=== PATIENT | female | born 1980 | race Caucasian/White ===

== ENCOUNTER 2016-08-18 19:10 | Emergency (ER) | payer OTHER ==
[~2016-08-18] VITALS: Ht 149.9 cm; Wt 45.5 kg
[~2016-08-18 19:10] MED LIST: PNV1TABL12 PO
[2016-08-18 19:15] VITALS: Ht 149.9 cm; Wt 45.5 kg
[2016-08-18] MEDS ORDERED: ACETAMINOPHEN 325 MG TAB PO STA (19:20)
[2016-08-18] MEDS ORDERED: SOD CHLORIDE 0.9% 1,000 ML IV STA (19:20)
[2016-08-18 19:53] LABS: ADD SCAN DIFF NO
[2016-08-18 19:55] LABS: BASOPHILS % 0.1 % (0.0-2.0); EOSINOPHILS # 0.1 10^3/ul (0.0-0.5); EOSINOPHILS % 1.1 % (0.0-7.0); HEMATOCRIT 36.1 % (37.0-47.0); HEMOGLOBIN 12.9 g/dl (12.0-16.0); LYMPHOCYTES # 2.4 10^3/ul (0.8-2.9); LYMPHOCYTES % 29.6 % (15.0-51.0); MEAN CORPUSCULAR HEMOGLOBIN 32.7 pg (29.0-33.0); MEAN CORPUSCULAR HGB CONC 35.7 g/dl (32.0-37.0); MEAN CORPUSCULAR VOLUME 91.6 fl (82.0-101.0); MEAN PLATELET VOLUME 10.6 fl (7.4-10.4); MONOCYTE # 0.6 10^3/ul (0.3-0.9); MONOCYTES % 6.8 % (0.0-11.0); PLATELET COUNT 355 10^3/UL (140-415); RED BLOOD COUNT 3.94 10^6/ul (4.20-5.40); RED CELL DISTRIBUTION WIDTH 12.5 % (11.5-14.5); WHITE BLOOD COUNT 8.1 10^3/ul (4.8-10.8)
[2016-08-18 20:11] LABS: ALBUMIN 4.1 g/dl (3.3-4.9)
[2016-08-18 20:12] LABS: POTASSIUM 3.3 mmol/L (3.5-5.1)
[2016-08-18 20:14] LABS: ALBUMIN/GLOBULIN RATIO 1.36; BILIRUBIN,INDIRECT 0.5 mg/dl (0-1.1); BILIRUBIN,TOTAL 0.5 mg/dl (0.2-1.3); CREATININE 0.56 mg/dl (0.44-1.00); TOTAL PROTEIN 7.1 g/dl (6.1-8.1)
[2016-08-18 20:15] LABS: CALCIUM 9.4 mg/dl (8.4-10.2)
--- NOTE | 2016-08-18 20:16 | RADRPT ---
PROCEDURE: OB Ultrasound. CLINICAL INDICATION: Positive test. Pelvic pain and vaginal bleeding. TECHNIQUE: Ultrasound of the pelvis was performed with transabdominal and transvaginal sonography in the axial and sagittal planes. COMPARISON: No prior study is available for comparison. FINDINGS: There is a single irregular intrauterine gestational sac. pole and yolk sac are not present. Mean sac diameter is 3.21 cm. Menstrual age by ultrasound dates is 8 weeks 2 days. This indicates a blighted ovum. There is also a small subchorionic hemorrhage. The right ovary appears normal measuring 2.8 x 2.4 x 1.7 cm. The left ovary appears normal measuring 2.8 x 1.3 x 1.5 cm. Color Doppler and pulsed Doppler sonography demonstrate normal flow to the ovaries. There is no other pelvic mass or free fluid. IMPRESSION: 1. Failed at approximately 8 weeks 2 days menstrual age by ultrasound dates. RPTAT: QQ .Julian Haney MD, MD Date Time Electronically viewed and signed by .Julian Haney MD, on 08/18/2016 20:15 .R/
[2016-08-18] MEDS ORDERED: HYDR-902 PO (20:36)
--- NOTE | 2016-08-18 20:43 | ERD ---
ER Documentation Chief Complaint Date/Time DATE: 08/18/16 TIME: 20:40 Chief Complaint Abdominal pain HPI Patient is a 35-year-old female with no medical problems who presents with pelvic pain. The patient has abdominal pain and says that she is 12 weeks . A code elin was called overhead. The pain started this morning. She went to [facility] a few weeks ago for similar type complaint. She denies any fevers. Her OB doctor is Dr. Vannessa Aguilar. ROS All systems reviewed and are negative except as per history of present illness. Medications Home Meds Active Scripts Hydrocodone/Acetaminophen ([place] 10-325 Tablet) 1 Each Tablet, 1 TAB PO Q6H Y for PAIN, #7 TAB Prov:SERGE STANFORD MD 08/18/16 Reported Medications Pnv Cmb#21/Iron/Folic Acid ( Complete [place]) 1 Tab Tablet, 1 TAB PO DAILY 08/02/13 [None] No Conflict Check 08/13/10 Allergies Allergies: Coded Allergies: No Known Drug Allergy (Verified Allergy, Unknown, 08/02/13) PMhx/Soc Medical and Surgical Hx: pt denies Medical Hx History of Surgery: No Anesthesia Reaction: No Hx Neurological Disorder: No Hx Respiratory Disorders: No Hx Cardiac Disorders: No Hx Psychiatric Problems: No Hx Miscellaneous Medical Probl: No Hx Alcohol Use: No Hx Substance Use: No Hx Tobacco Use: No FmHx Family History: diabetes Physical Exam Physical Exam Const: Mild distress secondary to pain Head: Atraumatic Eyes: Normal Conjunctiva ENT: Normal External Ears, Nose and Mouth. Neck: Full range of motion..~ No meningismus. Resp: Clear to auscultation bilaterally Cardio: Regular rate and rhythm, no murmurs Abd: Lower pelvic tenderness to palpation without rebound or guarding Skin: No petechiae or rashes Back: No midline or flank tenderness Ext: No cyanosis, or edema Neur: Awake and alert Psych: Normal Mood and Affect Result Diagram: 08/18/16193408/18/161934 Results 24 hrs Laboratory Tests Test 08/18/16 19:35 White Blood Count 8.110^3/ul Red Blood Count 3.9410^6/ul Hemoglobin 12.9g/dl Hematocrit 36.1% Mean Corpuscular Volume 91.6fl Mean Corpuscular Hemoglobin 32.7pg Mean Corpuscular Hemoglobin Concent 35.7g/dl Red Cell Distribution Width 12.5% Platelet Count 79704^3/UL Mean Platelet Volume 10.6fl Neutrophils % 62.0% Lymphocytes % 29.6% Monocytes % 6.8% Eosinophils % 1.1% Basophils % 0.1% Nucleated Red Blood Cells % 0.0/100WBC Neutrophils # 5.010^3/ul Lymphocytes # 2.410^3/ul Monocytes # 0.610^3/ul Eosinophils # 0.110^3/ul Basophils # 0.010^3/ul Nucleated Red Blood Cells # 0.010^3/ul Sodium Level 137mmol/L Potassium Level 3.3mmol/L Chloride Level 102mmol/L Carbon Dioxide Level 21mmol/L Anion Gap 17 Blood Urea Nitrogen 13mg/dl Creatinine 0.56mg/dl Glucose Level 102mg/dl Calcium Level 9.4mg/dl Total Bilirubin 0.5mg/dl Direct Bilirubin 0.00mg/dl Indirect Bilirubin 0.5mg/dl Aspartate Amino Transf (AST/SGOT) 18IU/L Alanine Aminotransferase (ALT/SGPT) 25IU/L Alkaline Phosphatase 82IU/L Total Protein 7.1g/dl Albumin 4.1g/dl Globulin 3.00g/dl Albumin/Globulin Ratio 1.36 Lipase 137U/L Current Medications Medications (Trade) Dose Ordered Sig/Kadeem Route PRN Reason Start Time Stop Time Status Last Admin Dose Admin Sodium Chloride (NS) 1,000 ml @ 1,000 mls/hr Q1H STAT IV 08/18/16 19:20 08/18/16 20:19 DC Acetaminophen (Tylenol Tab) 650 mg ONCE STAT PO 08/18/16 19:20 08/18/16 19:21 DC Procedures/MDM Patient is a 35-year-old female with no medical problems who presents with pelvic pain. The patient had a workup including laboratory studies and ultrasound. The patient has mild hypokalemia. Ultrasound shows a failed at 8 weeks. At this point I believe outpatient management is appropriate but the patient will need an outpatient D&C. The patient can follow -up with Dr. Vannessa Aguilar. Departure Diagnosis: Primary Impression: Miscarriage Condition: Fair Patient Instructions: Missed Miscarriage Referrals: VANNESSA AGUILAR MD Additional Instructions: Specialist:Usted tiene trevor condicin mdica que requiere que madie a un especialista dentro de los prximos 1-2 benz.POR FAVOR,CON S[place]NC[place]Z SEGUIMIENTO DE PRIMARIA PHSICIAN refferal. SI USTED NO TIENE UN MDICO GENERAL Y / O USTED NO PUEDE PAGAR jeannie a un mdico,los siguientes ovalle RECURSOS sido suministrado a usted. ES S[place]NC[place]Z RESPONSABILIDAD PARA SER VISTOS POR EL ESPECIALISTA: SERGE STANFORD MD August 18, 2016 20:43
[2016-08-18 21:24] VITALS: BP 109/61; PULSE 64; RESP 18
== END 2016-08-18 21:54 | disposition home or self-care (01) ==
LOC: E/R 19:10
DX: O03.9 Complete or unspecified spontaneous abortion without complication (principal); R10.2 Pelvic and perineal pain
CPT/HCPCS: 36415; 76801; 76817; 80053; 83690; 84702; 85025; 86900; 86901; J7030; Z7502; Z7610

== ENCOUNTER 2016-09-06 01:59 | Emergency (ER) | payer OTHER ==
[~2016-09-06] VITALS: Ht 154.9 cm; Wt 48.0 kg
[~2016-09-06 01:59] MED LIST changes: +HYDR-902 PO; -PNV1TABL12 PO
[2016-09-06 02:05] VITALS: Ht 154.9 cm; Wt 48.0 kg
[2016-09-06] MEDS ORDERED: SOD CHLORIDE 0.9% 1,000 ML IV STA (03:06)
--- NOTE | 2016-09-06 03:53 | ERD ---
ER Documentation Chief Complaint Date/Time DATE: 09/06/16 TIME: 03:51 Chief Complaint Pt reports miscarriage on and having pain and bleeding tonight HPI 35-year-old female presents here in emergency department for complaints of vaginal bleeding, patient was supposed to be 15 weeks , had a miscarriage 3 days ago, was putting out a lot of tissue that time, the bleeding and the pain improved the next day, tonight started to have bleeding heavily again. Patient soaked 3 pads today. Patient prescribed the pain as cramping pain , 8/10 scale, radiates to the back accompanying the vaginal bleeding. Patient denies any fever or chills. Patient denies any dizziness, palpitations or irregular heartbeat. ROS All systems reviewed and are negative except as per history of present illness. Medications Home Meds Active Scripts Hydrocodone/Acetaminophen ([place] 10-325 Tablet) 1 Each Tablet, 1 TAB PO Q6H Y for PAIN, #7 TAB Prov:SERGE STANFORD MD 08/18/16 Allergies Allergies: Coded Allergies: No Known Drug Allergy (Verified Allergy, Unknown, 08/18/16) PMhx/Soc History of Surgery: Yes (L breast biopsy,bilat breast implants) Anesthesia Reaction: No Hx Neurological Disorder: No Hx Respiratory Disorders: No Hx Cardiac Disorders: No Hx Psychiatric Problems: No Hx Miscellaneous Medical Probl: Yes (miscarriage) Hx Alcohol Use: Yes (occasionally) Hx Substance Use: No Hx Tobacco Use: Yes (quit) Smoking Status: Never smoker FmHx Family History: No coronary disease, No diabetes, No other Physical Exam Vitals Vital Signs Date Time Temp Pulse Resp B/P Pulse Ox O2 Delivery O2 Flow Rate FiO2 09/06/16 02:05 99.1 80 20 136/80 97 Physical Exam GENERAL: The patient is well developed and appropriate for usual state of health, in no apparent distress. CHEST: Clear to auscultation bilaterally. There are no rales, wheezes or rhonchi. HEART: Regular rate and rhythm. No murmurs, clicks, rubs or gallops. No S3 or S4. ABDOMEN: Soft, nontender and nondistended. Good bowel sounds. No rebound or guarding. No gross peritonitis. No gross organomegaly or masses. No Segal sign or McBurney point tenderness. BACK: No midline or flank tenderness. EXTREMITIES: Equal pulses bilaterally. There is no peripheral clubbing, cyanosis or edema. No focal swelling or erythema. Full range of motion. Grossly neurovascularly intact. NEURO: Alert and oriented. Cranial nerves 2-12 intact. Motor strength in all 4 extremities with 5/5 strength. Sensation grossly intact. Normal speech and gait. SKIN: There is no apparent rash or petechia. The skin is warm and dry. HEMATOLOGIC AND LYMPHATIC: There is no evidence of excessive bruising or lymphedema. No gross cervical, axillary, or inguinal lymphadenopathy. VAGINAL: Moderate amount of blood in the vaginal vault. Cervical is closed. No adnexal tenderness or cervical motion tenderness noted. Result Diagram: 09/06/16 0346 Results 24 hrs Laboratory Tests Test 09/06/16 03:46 09/06/16 04:56 White Blood Count 9.210^3/ul Red Blood Count 3.5610^6/ul Hemoglobin 11.8g/dl Hematocrit 33.9% Mean Corpuscular Volume 95.2fl Mean Corpuscular Hemoglobin 33.1pg Mean Corpuscular Hemoglobin Concent 34.8g/dl Red Cell Distribution Width 12.3% Platelet Count 68739^3/UL Mean Platelet Volume 10.6fl Neutrophils % 60.4% Lymphocytes % 29.9% Monocytes % 7.8% Eosinophils % 1.1% Basophils % 0.3% Nucleated Red Blood Cells % 0.0/100WBC Neutrophils # 5.610^3/ul Lymphocytes # 2.810^3/ul Monocytes # 0.710^3/ul Eosinophils # 0.110^3/ul Basophils # 0.010^3/ul Nucleated Red Blood Cells # 0.010^3/ul Beta HCG, Quantitative 192.9mIU/ml Bedside Urine pH (LAB) 6.0 Bedside Urine Protein (LAB) 1+ Bedside Urine Glucose (UA) Negative Bedside Urine Ketones (LAB) Negative Bedside Urine Blood 3+ Bedside Urine Nitrite (LAB) Negative Bedside Urine Leukocyte Esterase (L Negative Current Medications Medications (Trade) Dose Ordered Sig/Kadeem Route PRN Reason Start Time Stop Time Status Last Admin Dose Admin Sodium Chloride (NS) 1,000 ml @ 1,000 mls/hr Q1H STAT IV 09/06/16 03:06 09/06/16 04:05 DC 09/06/16 03:49 Morphine Sulfate (morphine) 6 mg ONCE ONCE IV 09/06/16 04:00 6/13/17 04:01 DC 09/06/16 03:55 Ondansetron HCl (Zofran Inj) 4 mg ONCE STAT IV 09/06/16 04:56 09/06/16 04:57 DC 09/06/16 05:02 Normal saline IV bolus was given here in emergency department for rehydration, patient tolerated IV fluids.Patient was given medication for pain here in emergency department, after treatment, patient verbalized feeling much better. Patient's pain is improved. ROCEDURE: ULTRASOUND OBSTETRICAL CLINICAL INDICATION: 35-year-old female with vaginal bleeding and history of recent miscarriage. TECHNIQUE: Multiple sonographic images of the pelvis were obtained. The images were reviewed on a PACS workstation. COMPARISON: Ultrasound OB August 16, 2016 FINDINGS: The uterus is visualized and measures 9.3 x 4.8 x 5.7 cm. The endometrial echo complex is heterogeneous with a normal thickness of approximately 14 mm. There is a single intrauterine gestation. The mean sac diameter is 0.61 cm. This yields an estimated gestational age of 5 weeks and 1 day. The estimated date of delivery is May 08, 2017. There is no evidence for a yolk sac or pole. There is no evidence for free fluid. The right ovary has a normal echotexture and measures 2.5 x 1.3 x 1.8 cm. The left ovary has a normal echotexture and measures 3.0 x 1.3 x 1 point a cm. There is normal flow to the ovaries bilaterally. No adnexal masses are noted. IMPRESSION: There is a cystic focus within the uterine fundus which may represent retained products of conception versus gestational sac with an early intrauterine gestation of approximately 5 weeks 1 day without evidence for a pole or yolk sac. Clinical correlation and follow-up ultrasound is suggested. .Alejandro Rader MD, Date Time Electronically viewed and signed by .Alejandro Rader MD, on 09/06/2016 04:18 .M/ CC: CELIA MCCULLOUGH NP Procedures/MDM Medical Decision Making: Patients vaginal bleeding is most likely consistent of failed , incomplete at this time. Patient does not show any evidence of hypovolemic shock. Patients hemoglobin and hematocrit is stable. There is low suspicion for ectopic . TOM results show unviable showing 5 weeks, smaller comparable to ultrasound done 3 weeks ago. BetaHCG Quantitative is very low consistent with the The patient is Rh+ , does not need RhoGAM this time. There is no signs of symptoms of dehydration. There is low suspicion for sepsis. Patient appears well and is hemodynamically stable. Disposition: Home. Condition: Stable Prescription: [place], doxycycline Instructions: Patient is advised to do bed rest, avoid heavy lifting, and avoid having sex until cleared by OB doctor. Patient is advised to follow up with OB doctor for further evaluation, consider dilatation and curettaged if she is unable to pass products of conception within 1 week, discus this with OB doctor.. Patient is advised that is symptoms are worst, severe bleeding, dizziness, severe abdominal pain, fever, worst signs and symptoms to return to the emergency department immediately. Departure Diagnosis: Primary Impression: Incomplete Condition: Stable Patient Instructions: Miscarriage (Incomplete) Additional Instructions: Patient is advised to do bed rest, avoid heavy lifting, and avoid having sex until cleared by OB doctor. Patient is advised to follow up with OB doctor for further evaluation, consider dilatation and curettaged if she is unable to pass products of conception within 1 week, discus this with OB doctor.. Patient is advised that is symptoms are worst, severe bleeding, dizziness, severe abdominal pain, fever, worst signs and symptoms to return to the emergency department immediately. CELIA MCCULLOUGH NP Sep 06, 2016 03:53
[2016-09-06] MEDS ORDERED: morphine 10 MG INJ IV ONE (04:00)
--- NOTE | 2016-09-06 04:18 | RADRPT ---
PROCEDURE: ULTRASOUND OBSTETRICAL CLINICAL INDICATION: 35-year-old female with vaginal bleeding and history of recent miscarriage. TECHNIQUE: Multiple sonographic images of the pelvis were obtained. The images were reviewed on a PACS workstation. COMPARISON: Ultrasound OB August 16, 2016 FINDINGS: The uterus is visualized and measures 9.3 x 4.8 x 5.7 cm. The endometrial echo complex is heterogene ous with a normal thickness of approximately 14 mm. There is a single intrauterine gestation. The m tony sac diameter is 0.61 cm. This yields an estimated gestational age of 5 weeks and 1 day. The est imated date of delivery is May 08, 2017. There is no evidence for a yolk sac or pole. Th ere is no evidence for free fluid. The right ovary has a normal echotexture and measures 2.5 x 1.3 x 1.8 cm. The left ovary has a normal echotexture and measures 3.0 x 1.3 x 1 point a cm. There is no rmal flow to the ovaries bilaterally. No adnexal masses are noted. IMPRESSION: There is a cystic focus within the uterine fundus which may represent retained products of conceptio n versus gestational sac with an early intrauterine gestation of approximately 5 weeks 1 day without evidence for a pole or yolk sac. Clinical correlation and follow-up ultrasound is suggested. .Alejandro Rader MD, Date Time Electronically viewed and signed by .Alejandro Rader MD, on 09/06/2016 04:19 .M/
[2016-09-06 04:23] LABS: ADD SCAN DIFF NO
[2016-09-06 04:28] LABS: BASOPHILS % 0.3 % (0.0-2.0); EOSINOPHILS # 0.1 10^3/ul (0.0-0.5); EOSINOPHILS % 1.1 % (0.0-7.0); HEMATOCRIT 33.9 % (37.0-47.0); HEMOGLOBIN 11.8 g/dl (12.0-16.0); LYMPHOCYTES # 2.8 10^3/ul (0.8-2.9); LYMPHOCYTES % 29.9 % (15.0-51.0); MEAN CORPUSCULAR HEMOGLOBIN 33.1 pg (29.0-33.0); MEAN CORPUSCULAR HGB CONC 34.8 g/dl (32.0-37.0); MEAN CORPUSCULAR VOLUME 95.2 fl (82.0-101.0); MEAN PLATELET VOLUME 10.6 fl (7.4-10.4); MONOCYTE # 0.7 10^3/ul (0.3-0.9); MONOCYTES % 7.8 % (0.0-11.0); NEUTROPHIL # 5.6 10^3/ul (1.6-7.5); NEUTROPHILS % 60.4 % (39.0-77.0); PLATELET COUNT 295 10^3/UL (140-415); RED BLOOD COUNT 3.56 10^6/ul (4.20-5.40); RED CELL DISTRIBUTION WIDTH 12.3 % (11.5-14.5); WHITE BLOOD COUNT 9.2 10^3/ul (4.8-10.8)
[2016-09-06 04:53] LABS: URINE BLOOD (Dip) POC 3+ (NEGATIVE)
[2016-09-06] MEDS ORDERED: ONDANSETRON 4 MG INJ IV STA (04:56)
[2016-09-06] MEDS ORDERED: IBUP-1542 PO (05:23)
[2016-09-06] MEDS ORDERED: DOXY100T20 PO (05:23)
[2016-09-06] MEDS ORDERED: HYDR-906 PO (05:23)
== END 2016-09-06 05:31 | disposition home or self-care (01) ==
LOC: FTE 01:59
DX: O03.4 Incomplete spontaneous abortion without complication (principal); R10.2 Pelvic and perineal pain; Z87.891 Personal history of nicotine dependence
CPT/HCPCS: 36415; 76801; 76817; 81003; 84702; 85025; 86900; 86901; 96374; 96375; J2270; J2405; J7030; Z7502

== ENCOUNTER 2016-11-17 17:13 | Emergency (ER) | payer OTHER ==
[~2016-11-17] VITALS: Ht 149.9 cm; Wt 48.0 kg
[~2016-11-17 17:13] MED LIST changes: +DOXY100T20 PO; +HYDR-906 PO; +IBUP-1542 PO
[2016-11-17 17:16] VITALS: Ht 149.9 cm; Wt 48.0 kg
--- NOTE | 2016-11-17 18:13 | ERA ---
ER Documentation Chief Complaint Date/Time DATE: 11/17/16 TIME: 18:10 Chief Complaint PELVIC PAIN RADIATING TO LEGS HPI 36-year-old female with a chief complaint of pelvic pain. Patient is 2 months status post spontaneous . Patient has had this pain once before and was diagnosed with a vaginal infection of unknown etiology. Does not remember the medications that she took it to relieve the symptoms. First and last menstrual period was 1 week ago. Describes possible discharge, but characteristics are unknown due to menstrual period. Denies pruritus. Foul odor without specific characteristics. Denies fever, chills, sweating, headache. Patient has no other complaints and describes no other associated manifestations. Nursing notes have been reviewed and are consistent with history given. ROS All systems reviewed and are negative except as per history of present illness. Medications Home Meds Active Scripts Nitrofurantoin Monohyd Macrocr* (Macrobid*) 100 Mg Capsr, 100 MG PO BID for 7 Days, CAP Prov:KARI MCKENNA 11/17/16 Metronidazole* (Flagyl*) 500 Mg Tablet, 500 MG PO TID for 7 Days, TAB Prov:KARI MCKENNA C 11/17/16 Doxycycline Hyclate* (Doxycycline Hyclate*) 100 Mg Tablet.dr, 100 MG PO BID for 10 Days, TAB Prov:CELIA MCCULLOUGH NP 09/06/16 Ibuprofen* (Motrin*) 600 Mg Tab, 600 MG PO Q6H Y for PAIN AND OR ELEVATED TEMP, #30 TAB Prov:CELIA MCCULLOUGH NP 09/06/16 Hydrocodone/Acetaminophen ([place] 5-325 Tablet) 1 Each Tablet, 1 TAB PO Q6H Y for SEVERE PAIN LEVEL 7-10, #20 TAB Prov:CELIA MCCULLOUGH NP 09/06/16 Hydrocodone/Acetaminophen ([place] 10-325 Tablet) 1 Each Tablet, 1 TAB PO Q6H Y for PAIN, #7 TAB Prov:SERGE STANFORD MD 08/18/16 Allergies Allergies: Coded Allergies: No Known Drug Allergy (Verified Allergy, Unknown, 08/18/16) PMhx/Soc History of Surgery: Yes (L breast biopsy,bilat breast implants) Anesthesia Reaction: No Hx Neurological Disorder: No Hx Respiratory Disorders: No Hx Cardiac Disorders: No Hx Psychiatric Problems: No Hx Miscellaneous Medical Probl: Yes (miscarriage) Hx Alcohol Use: Yes (occasionally) Hx Substance Use: No Hx Tobacco Use: Yes (quit) Physical Exam Vitals Vital Signs Date Time Temp Pulse Resp B/P Pulse Ox O2 Delivery O2 Flow Rate FiO2 11/17/16 21:27 97.7 58 18 114/68 100 Room Air 11/17/16 17:16 98.6 92 18 105/64 98 Physical Exam Const: Healthy-appearing. No acute distress. Abd: Mild suprapubic tenderness. Soft, non tender, non distended. No guarding, masses. Normal bowel sounds. No McBurney's point tenderness. Back: No midline, flank or CVA tenderness Head: Normocephalic, Atraumatic. Eyes: Non-injected; No scleral erythema, discharge or foreign body. Ears: Normal External Ears, EACs clear, TM normal bilaterally without erythema. Nose: Normal external nose; no discharge, septal deviation, or sinus tenderness. Neck: No cervical lymphadenopathy, masses or goiter palpated. Trachea midline. Supple ~ No meningismus. Pulm: No dyspnea, stridor, tripoding or drooling. Good air movement. Clear to auscultation bilaterally. Cardio: Regular rate and rhythm; No murmurs, gallops or rubs auscultated. No JVD grossly observed. Radial and posterior tibial pulses 2+ bilaterally. Capillary refill less than 2 seconds. MS: Normal motor strength, normal tone. Skin: No petechiae or rashes. No ulcer, induration, jaundice. Good turgor. . Ext: No cyanosis, edema or palpable cord. Normal movement of all extremities grossly observed. Neur: Awake, alert and oriented x3. Neurovascularly intact bilaterally. Psych: Normal Mood and Affect. Result Diagram: 11/17/16200411/17/162004 Results 24 hrs Laboratory Tests Test 11/17/16 19:14 11/17/16 20:05 Bedside Urine pH (LAB) 5.5 Bedside Urine Protein (LAB) Trace Bedside Urine Glucose (UA) Negative Bedside Urine Ketones (LAB) Trace Bedside Urine Blood 1+ Bedside Urine Nitrite (LAB) Negative Bedside Urine Leukocyte Esterase (L 3+ White Blood Count 13.910^3/ul Red Blood Count 4.0910^6/ul Hemoglobin 13.0g/dl Hematocrit 37.6% Mean Corpuscular Volume 91.9fl Mean Corpuscular Hemoglobin 31.8pg Mean Corpuscular Hemoglobin Concent 34.6g/dl Red Cell Distribution Width 11.6% Platelet Count 73287^3/UL Mean Platelet Volume 10.4fl Neutrophils % 78.8% Lymphocytes % 13.7% Monocytes % 6.5% Eosinophils % 0.4% Basophils % 0.2% Nucleated Red Blood Cells % 0.0/100WBC Neutrophils # (Manual) 10.910^3/ul Lymphocytes # 1.910^3/ul Monocytes # 0.910^3/ul Eosinophils # 0.110^3/ul Basophils # 0.010^3/ul Nucleated Red Blood Cells # 0.010^3/ul Prothrombin Time 13.7Sec Prothrombin Time Ratio 1.1 INR International Normalized Ratio 1.05 Activated Partial Thromboplast Time 30.1Sec Sodium Level 141mmol/L Potassium Level 3.8mmol/L Chloride Level 103mmol/L Carbon Dioxide Level 23mmol/L Anion Gap 19 Blood Urea Nitrogen 16mg/dl Creatinine 0.70mg/dl Glucose Level 76mg/dl Calcium Level 9.6mg/dl Total Bilirubin 0.5mg/dl Direct Bilirubin 0.00mg/dl Indirect Bilirubin 0.5mg/dl Aspartate Amino Transf (AST/SGOT) 24IU/L Alanine Aminotransferase (ALT/SGPT) 42IU/L Alkaline Phosphatase 81IU/L Total Protein 7.5g/dl Albumin 4.4g/dl Globulin 3.10g/dl Albumin/Globulin Ratio 1.41 Lipase 73U/L Beta HCG, Quantitative < 2.4mIU/ml Current Medications Medications (Trade) Dose Ordered Sig/Kadeem Route PRN Reason Start Time Stop Time Status Last Admin Dose Admin Acetaminophen/ Hydrocodone Bitart ([place] (5/325)) 1 tab ONCE ONCE PO 11/17/16 18:30 11/17/16 18:31 DC 11/17/16 18:42 Morphine Sulfate (morphine) 3 mg ONCE ONCE IM 11/17/16 20:00 11/17/16 20:01 DC 11/17/16 19:53 Morphine Sulfate (morphine) 1 mg ONCE ONCE IM 11/17/16 21:00 11/17/16 21:01 DC 11/17/16 21:00 Procedures/MDM 36-year-old female presenting with a chief complaints of pelvic pain. [place] 5/ 325 mg p.o. was given with adequate relief of pain. Patient has had this once before and was diagnosed with a vaginal infection. Does not remember the etiology or the medications to relieve previous vaginal infection. Ultrasound was ordered to rule out ovarian torsion. Ultrasound was read by the radiologist given the following impression: 0.5 cm bilobed cyst in the junctional zone at the posterior uterine fundus is unchanged from September 06, 2016. In this clinical setting of recent miscarriage, recommend correlation with serum beta HCG. If beta HCG is negative, the cyst is likely benign and may be related to adenomyosis. Other etiologies may be considered if the beta HCG is positive. Pelvic ultrasound is otherwise normal. Cause for pelvic pain is not evident. At this time of little suspicion for ovarian torsion, retained products of conception, pyelonephritis, PID, acute abdomen, or other serious bacterial infections. Most likely diagnosis is adenomyosis as outlined in the ultrasound results. Patient's case will be handed off to Kari Mckenna PA-C. Departure Diagnosis: Primary Impression: Acute pain in female pelvis Condition: Stable Additional Instructions: Follow up with your PCP within the next 1-3 days for a more thorough evaluation and a possible referral to a specialist. Return the the emergency department immediately if symptoms worsen or change. If you have any questions regarding medications, ask your pharmacist or us before you leave. If any adverse reactions occur while taking your medications, discontinue the treatment and return to the emergency department immediately. Take your medications as directed, and complete the entire course of treatment. Comments Patient handed off to MOLLY Tran MICHAEL PA-C Nov 17, 2016 18:11
[2016-11-17] MEDS ORDERED: HYDROCODONE/APAP (5/325) TAB PO ONE (18:30)
[2016-11-17 19:09] LABS: URINE BLOOD (Dip) POC 1+ (NEGATIVE)
[2016-11-17] MEDS ORDERED: METR500T PO ×2 (19:32→21:19)
[2016-11-17] MEDS ORDERED: NITR-58 PO ×2 (19:32→21:19)
--- NOTE | 2016-11-17 19:36 | RADRPT ---
PROCEDURE: ULTRASOUND EVALUATION OF THE FEMALE PELVIS: CLINICAL INDICATION: 36 years of age, female, pelvic pain . COMPARISON: OB ultrasound September 06, 2016 TECHNIQUE: Real-time sonographic images of the pelvis were obtained transabdominally and transvagina lly utilizing doyle scale, color, and Doppler imaging. FINDINGS: LMP: November 11, 2016 Uterus: Appearance: 0.4 x 0.5 x 0.5 cm bilobed cyst in junctional zone at the posterior fundus without hyper emia is unchanged from the prior exam. Myometrium is otherwise normal. Cervix is closed. Position: Anteverted Size: 8.2 x 3.5 x 5.1 cm. (Volume 77.3 mL) Endometrial stripe: 0.3 cm Right ovary and adnexa: Size: 1.5 x 1.6 x 2.4 cm. (Volume 2.8 mL) Appearance: Normal morphology. No masses. Arterial flow present. Left ovary and adnexa: Size: 2.4 x 1.4 x 1.8 cm. (Volume 3.2 mL) Appearance: Normal morphology. No masses. Venous flow present. Free fluid: None IMPRESSION: 0.5 cm bilobed cyst in the junctional zone at the posterior uterine fundus is unchanged from August. In this clinical setting of recent miscarriage, recommend correlation with serum beta HCG. If beta HCG is negative, the cyst is likely benign and may be related to adenomyosis. Other etiolog ies may be considered if the beta HCG is positive. Pelvic ultrasound is otherwise normal. Cause for pelvic pain is not evident. RPTAT: HCTS Physician Jasen Date Time Electronically viewed and signed by Physician Jasen on 11/17/2016 19:36 CS/
[2016-11-17] MEDS ORDERED: morphine 10 MG INJ IM ONE ×2 (20:00→21:00)
[2016-11-17 20:27] LABS: BASOPHILS % 0.2 % (0.0-2.0); EOSINOPHILS # 0.1 10^3/ul (0.0-0.5); EOSINOPHILS % 0.4 % (0.0-7.0); HEMATOCRIT 37.6 % (37.0-47.0); LYMPHOCYTES # 1.9 10^3/ul (0.8-2.9); LYMPHOCYTES % 13.7 % (15.0-51.0); MEAN CORPUSCULAR HEMOGLOBIN 31.8 pg (29.0-33.0); MEAN CORPUSCULAR HGB CONC 34.6 g/dl (32.0-37.0); MEAN CORPUSCULAR VOLUME 91.9 fl (82.0-101.0); MEAN PLATELET VOLUME 10.4 fl (7.4-10.4); MONOCYTE # 0.9 10^3/ul (0.3-0.9); MONOCYTES % 6.5 % (0.0-11.0); NEUTROPHILS % 78.8 % (39.0-77.0); PLATELET COUNT 293 10^3/UL (140-415); RED BLOOD COUNT 4.09 10^6/ul (4.20-5.40); RED CELL DISTRIBUTION WIDTH 11.6 % (11.5-14.5); WHITE BLOOD COUNT 13.9 10^3/ul (4.8-10.8)
[2016-11-17 20:41] LABS: INR 1.05; PROTIME 13.7 Sec (12.2-14.2); PT RATIO 1.1
[2016-11-17 20:42] LABS: PARTIAL THROMBOPLASTIN TIME 30.1 Sec (25.0-35.0)
[2016-11-17 20:45] LABS: ALBUMIN 4.4 g/dl (3.3-4.9); ALBUMIN/GLOBULIN RATIO 1.41; BILIRUBIN,INDIRECT 0.5 mg/dl (0-1.1); BILIRUBIN,TOTAL 0.5 mg/dl (0.2-1.3); CALCIUM 9.6 mg/dl (8.4-10.2); CREATININE 0.7 mg/dl (0.44-1.00); POTASSIUM 3.8 mmol/L (3.5-5.1); TOTAL PROTEIN 7.5 g/dl (6.1-8.1)
[2016-11-17 21:27] VITALS: BP 114/68; PULSE 58; RESP 18; TEMP 97.7
== END 2016-11-18 08:25 | disposition home or self-care (01) ==
LOC: FTE 17:13 → E/R 11-18 08:25
DX: R10.2 Pelvic and perineal pain (principal); Z87.891 Personal history of nicotine dependence
CPT/HCPCS: 36415; 76830; 76856; 80053; 81003; 83690; 84702; 85025; 85610; 85730; 96372; J2270; Z7502; Z7610

== ENCOUNTER 2017-06-28 14:42 | Emergency (ER) | END 2017-06-28 17:30 | disposition home or self-care (01) ==

== ENCOUNTER 2017-08-31 23:15 | Outpatient (CLI) | END 2017-09-01 03:40 | disposition home or self-care (01) ==

== ENCOUNTER 2017-11-08 22:37 | Outpatient (CLI) | END 2017-11-09 02:08 | disposition home or self-care (01) ==

== ENCOUNTER 2017-11-18 03:30 | Inpatient (IN) | END 2017-11-20 18:50 | disposition home or self-care (01) | DRG 775 ==

== ENCOUNTER 2018-03-28 22:35 | Emergency (ER) | payer BC, OTHER ==
[~2018-03-28] VITALS: Ht 152.4 cm; Wt 53.0 kg
[~2018-03-28 22:35] MED LIST changes: -DOXY100T20 PO; -HYDR-902 PO; -HYDR-906 PO; -IBUP-1542 PO; +PNV1TABL12 PO
[2018-03-28 22:40] VITALS: Ht 152.4 cm; Wt 53.0 kg
[2018-03-29] MEDS ORDERED: ACETAMINOPHEN 325 MG TAB PO STA (00:28)
[2018-03-29] MEDS ORDERED: DOXY1TAB3 PO (02:14)
--- NOTE | 2018-03-29 02:35 | ERD ---
ER Documentation Chief Complaint Chief Complaint abd pain, n/v x 2 days. doesnt know if shes HPI 37-year-old female presents for abdominal pain, nausea, vomiting times 2 days. She notes lower pelvic pain that is noted to be mild. States that there is some radiation to her back. She describes the pain as crampy. She denies any vaginal bleeding. No prior similar symptoms. She presents to the clinic today and tested positive for on urine test. ROS All systems reviewed and are negative except as per history of present illness. Medications Home Meds Active Scripts Doxylamine/Pyridoxine Hcl (DICLEGIS DR 10-10 MG TABLET) 1 Each Tablet.dr, 1 TAB PO Q6H PRN for NAUSEA, #30 TAB Prov:ILANSERGIO DO 03/29/18 Reported Medications Pnv Cmb#21/Iron/Folic Acid ( Complete Caplet) 1 Each Tablet, 1 EACH PO DAILY, TAB 11/17/17 Allergies Allergies: Coded Allergies: No Known Drug Allergy (Verified Allergy, Unknown, 03/28/18) PMhx/Soc Anesthesia Reaction: No Hx Neurological Disorder: No Hx Respiratory Disorders: No Hx Cardiac Disorders: No Hx Psychiatric Problems: No Hx Miscellaneous Medical Probl: Yes (miscarriage) Hx Alcohol Use: No Hx Substance Use: No Hx Tobacco Use: No Smoking Status: Never smoker Physical Exam Vitals Vital Signs Date Temp Pulse Resp B/P (MAP) Pulse Ox O2 O2 Flow FiO2 Time Delivery Rate 03/28/18 98.6 82 20 124/65 98 22:40 (84) Physical Exam Const: No acute distress Resp: Clear to auscultation bilaterally Cardio: Regular rate and rhythm, no murmurs Abd: Soft, non distended. Normal bowel sounds, mild lower tenderness to palpation, no McBurney's point tenderness, no Segal sign, no rebound or guarding noted. Skin: No petechiae or rashes Back: No midline or flank tenderness Ext: No cyanosis, or edema Neur: Awake and alert Psych: Normal Mood and Affect Result Diagram: 03/29/18 0040 03/29/18 0040 Results 24 hrs Laboratory Tests Test 03/29/18 00:32 03/29/18 00:40 Urine Color YELLOW Urine Clarity CLEAR Urine pH 6.0 Urine Specific [place] 1.023 Urine Ketones TRACE mg/dL Urine Nitrite NEGATIVE mg/dL Urine Bilirubin NEGATIVE mg/dL Urine Urobilinogen NEGATIVE mg/dL Urine Leukocyte Esterase NEGATIVE Sunny/ul Urine Microscopic RBC 0 /HPF Urine Microscopic WBC 1 /HPF Urine Squamous Epithelial Cells FEW /HPF Urine Hemoglobin 1+ mg/dL Urine Glucose NEGATIVE mg/dL Urine Total Protein NEGATIVE mg/dl White Blood Count 9.9 10^3/ul Red Blood Count 3.68 10^6/ul Hemoglobin 12.1 g/dl Hematocrit 34.4 % Mean Corpuscular Volume 93.5 fl Mean Corpuscular Hemoglobin 32.9 pg Mean Corpuscular Hemoglobin Concent 35.2 g/dl Red Cell Distribution Width 12.8 % Platelet Count 291 10^3/UL Mean Platelet Volume 10.5 fl Immature Granulocytes % 0.400 % Neutrophils % 60.9 % Lymphocytes % 30.5 % Monocytes % 7.4 % Eosinophils % 0.7 % Basophils % 0.1 % Nucleated Red Blood Cells % 0.0 /100WBC Immature Granulocytes # 0.040 10^3/ul Neutrophils # 6.0 10^3/ul Lymphocytes # 3.0 10^3/ul Monocytes # 0.7 10^3/ul Eosinophils # 0.1 10^3/ul Basophils # 0.0 10^3/ul Nucleated Red Blood Cells # 0.0 10^3/ul Sodium Level 139 mmol/L Potassium Level 4.1 mmol/L Chloride Level 102 mmol/L Carbon Dioxide Level 23 mmol/L Anion Gap 14 Blood Urea Nitrogen 19 mg/dl Creatinine 0.48 mg/dl Est Glomerular Filtrat Rate mL/min > 60 mL/min Glucose Level 122 mg/dl Calcium Level 10.0 mg/dl Total Bilirubin 0.1 mg/dl Direct Bilirubin 0.00 mg/dl Indirect Bilirubin 0.1 mg/dl Aspartate Amino Transf (AST/SGOT) 22 IU/L Alanine Aminotransferase (ALT/SGPT) 27 IU/L Alkaline Phosphatase 79 IU/L Total Protein 6.5 g/dl Albumin 4.2 g/dl Globulin 2.30 g/dl Albumin/Globulin Ratio 1.82 Beta HCG, Quantitative 157800.0 mIU/ml Current Medications Medications Dose Sig/Kadeem Start Time Status Last (Trade) Ordered Route PRN Stop Time Admin Dose Reason Admin 650 mg ONCE STAT 03/29/18 DC 03/29/18 Acetaminophen PO 00:28 03/29/18 00:42 (Tylenol 00:30 Tab) Procedures/MDM Medical Decision Making: Differential diagnosis includes but not limited to acute gastroenteritis, acute gastritis, appendicitis, cholecystitis, pancreatitis, . Patient appeared well on physical exam. Nontoxic appearing. There is mild tenderness to palpation over the pelvic area. There is low suspicion for an acute abdomen at this point. Labs: CBC showed no anemia, no elevated WBC to suggest infection CMP showed no electrolyte abnormalities, there was normal kidney and liver fu nction UA was negative for infection Beta-hCG level was 241,230 Imaging: Pelvic ultrasound showed Single live intrauterine with an estimated gestational age of 7 weeks 6 days. This yields an estimated due date of 11/09/2018, compared to an estimated due date of 09/25/2018 by LMP. Prescription(s): Patient given prescription for Diclegis. Advised follow-up with [facility]. Advised to take [id number] vitamins. Patient advised to follow up with PCP in 1-2 days. Patient advised to return to ED for new or worsening symptoms. Patient stable on discharge from the ED. Disclaimer: Inadvertent spelling and grammatical errors are likely due to EHR/dictation software use and do not reflect on the overall quality of patient care. Also, please note that the electronic time recorded on this note does not necessarily reflect the actual time of the patient encounter. Departure Diagnosis: Primary Impression: Weeks of gestation: less than 8 weeks Qualified Codes: Z3A.01 - Less than 8 weeks gestation of Condition: Fair Patient Instructions: Abdominal Pain, Early Referrals: [facility] YOU HAVE RECEIVED A MEDICAL SCREENING EXAM AND THE RESULTS INDICATE THAT YOU DO NOT HAVE A CONDITION THAT REQUIRES URGENT TREATMENT IN THE EMERGENCY DEPARTMENT. FURTHER EVALUATION AND TREATMENT OF YOUR CONDITION CAN WAIT UNTIL YOU ARE SEEN IN YOUR DOCTORS OFFICE WITHIN THE NEXT 1-2 DAYS. IT IS YOUR RESPONSIBILITY TO MAKE AN APPOINTMENT FOR FOLOW-UP CARE. IF YOU HAVE A PRIMARY DOCTOR --you should call your primary doctor and schedule an appointment IF YOU DO NOT HAVE A PRIMARY DOCTOR YOU CAN CALL OUR PHYSICIAN REFERRAL HOTLINE AT IF YOU CAN NOT AFFORD TO SEE A PHYSICIAN YOU CAN CHOSE FROM THE FOLLOWING [facility] [address] [facility]. [facility] [address] [facility] [address] [facility]. [facility] [address] [facility] [address] [facility]. [facility]. [address] Additional Instructions: Call your primary care doctor TOMORROW for an appointment during the next 1-2 days.See the doctor sooner or return here if your condition worsens before your appointment time. Follow up with Qualifications Examiner SERGIO TALAVERA DO Mar 29, 2018 02:35
== END 2018-03-29 02:56 | disposition home or self-care (01) ==
LOC: FTE 22:35
DX: O26.891 Other specified pregnancy related conditions, first trimester (principal); R10.2 Pelvic and perineal pain; Z3A.01 Less than 8 weeks gestation of pregnancy
CPT/HCPCS: 36415; 76801; 80053; 81001; 84702; 85025; 99284; Z7610

== ENCOUNTER 2018-04-06 10:23 | Emergency (ER) | payer BC ==
[~2018-04-06] VITALS: Ht 162.6 cm; Wt 60.0 kg
[~2018-04-06 10:23] MED LIST changes: +DOXY1TAB3 PO
[2018-04-06 10:25] VITALS: Ht 162.6 cm; Wt 60.0 kg
[2018-04-06] MEDS ORDERED: SOD CHLORIDE 0.9% 1,000 ML IV STA (10:47)
[2018-04-06] MEDS ORDERED: METOCLOPRAMIDE 10 MG INJ IV ONE (11:00)
[2018-04-06] MEDS ORDERED: DIPHENHYDRAMINE 50 MG INJ IV ONE (11:00)
[2018-04-06] MEDS ORDERED: ACET500C5 PO (15:01)
[2018-04-06] MEDS ORDERED: CEPH-443 PO (15:01)
[2018-04-06] MEDS ORDERED: METO10TA92 PO (15:01)
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
[2018-04-06 15:31] VITALS: BP 101/55; PULSE 73; RESP 18
--- NOTE | 2018-04-06 15:56 | NUR ---
Pt completed the Discharge Consent By Patient Without Permanent Address form and was provided with taxi voucher to friend's home. Please see nursing notes for Address.
== END 2018-04-06 15:35 | disposition home or self-care (01) ==
LOC: FTE 10:23
DX: O21.9 Vomiting of pregnancy, unspecified (principal); R10.2 Pelvic and perineal pain; Z3A.12 12 weeks gestation of pregnancy
CPT/HCPCS: 76801; 80053; 81001; 83690; 84702; 85025; 86900; 86901; J1200; J2765; J7030; 36415; 81003; 96361; 96374; 96375

== ENCOUNTER 2018-09-26 18:17 | Outpatient (CLI) | payer BC ==
[~2018-09-26 18:17] MED LIST changes: +ACET500C5 PO; +CEPH-443 PO; +METO10TA92 PO
--- NOTE | 2018-10-18 08:21 | QN ---
Documentation Comment patient was not evaluated by me and left against medical advice SERGIO LEÓN MD Oct 18, 2018 08:21
== END 2018-09-26 18:30 | disposition left against medical advice (07) ==
LOC: OBT 18:17 → L-D 18:17 → OBT 18:30
PROVIDERS: ATTEND Obstetrics & Gynecology
DX: Z53.21 Procedure and treatment not carried out due to patient leaving prior to being seen by health care provider (principal)
CPT/HCPCS: G0463

== ENCOUNTER 2018-09-26 20:51 | Inpatient (IN) | payer BC ==
[~2018-09-26] VITALS: Ht 149.9 cm; Wt 58.1 kg
[2018-09-26] MEDS ORDERED: BUTORPHANOL 2 MG INJ IV PRN ×2 (22:30)
[2018-09-26] MEDS ORDERED: MISOPROSTOL 200 MCG TAB PR PRN (22:30)
[2018-09-26] MEDS ORDERED: CARBOPROST 250 MCG INJ IM PRN (22:30)
[2018-09-26] MEDS ORDERED: OXYTOCIN 30 UNITS/LR 500 ML IV PRN (22:30)
[2018-09-26] MEDS ORDERED: METHYLERGONOVINE 0.2 MG INJ IM PRN (22:30)
[2018-09-26] MEDS ORDERED: AMPICILLIN 2 GM/NS (PMX) 100 ML IVPB ONE (22:30)
[2018-09-26] MEDS ORDERED: IBUPROFEN 600 MG TAB PO PRN (22:30)
[2018-09-26] MEDS ORDERED: LIDOCAINE 1% (MPF) 30 ML INJ INJ PRN (22:30)
[2018-09-26 23:00] VITALS: Ht 149.9 cm; Wt 58.1 kg
[2018-09-27] MEDS ORDERED: LACTATED RINGER'S 1,000 ML IV PRN (00:20)
[2018-09-27] MEDS: LACTATED RINGER'S 1,000 ML IV SCH ×4 (00:20→22:36)
[2018-09-27] MEDS: AMPICILLIN 1 GM/NS (PMX) 50 ML IVPB SCH ×6 (04:14→21:00)
[2018-09-27] MEDS ORDERED: DEXTROSE 50% 50 ML SYRINGE IV PRN ×2 (14:00)
[2018-09-27] MEDS ORDERED: OXYTOCIN 30 UNITS/LR 500 ML IV PRN (14:00)
[2018-09-27] MEDS ORDERED: GLUCAGON 1 MG INJ IM PRN (14:00)
[2018-09-27] MEDS ORDERED: GLUCOSE GEL 15 GRAM TUBE BUCCAL PRN (14:00)
[2018-09-27] MEDS ORDERED: CARBOPROST 250 MCG INJ IM PRN (14:00)
[2018-09-27] MEDS ORDERED: OXYTOCIN 30 UNITS/LR 500 ML IV SCH ×2 (14:00)
[2018-09-27] MEDS ORDERED: GLUCOSE GEL 15 GRAM TUBE PO PRN ×2 (14:00)
[2018-09-27] MEDS ORDERED: METHYLERGONOVINE 0.2 MG INJ IM PRN (14:00)
[2018-09-27] MEDS ORDERED: MISOPROSTOL 200 MCG TAB PR PRN (14:00)
[2018-09-27] MEDS ORDERED: LIDOCAINE 1% (MPF) 30 ML INJ INJ PRN (14:00)
[2018-09-27] MEDS: INSULIN ASPART [NOVOLOG] 3 ML PEN SC SCH (17:58)
[2018-09-27] MEDS ORDERED: NPH, HUMAN INSULIN ISOPHANE 3ML VIAL SC SCH (20:00)
[2018-09-28] MEDS: AMPICILLIN 1 GM/NS (PMX) 50 ML IVPB SCH ×3 (00:10→10:36)
[2018-09-28] MEDS: LACTATED RINGER'S 1,000 ML IV SCH (06:26)
[2018-09-28] MEDS ORDERED: NPH, HUMAN INSULIN ISOPHANE 3ML VIAL SC SCH (08:00)
[2018-09-28] MEDS: INSULIN ASPART [NOVOLOG] 3 ML PEN SC SCH (09:11)
--- NOTE | 2018-09-28 11:59 | HP ---
Date/Time of Note Date/Time of Note DATE: 09/28/18 TIME: 11:58 OB - History Hx of Present : 4 Para: 3 Care: Good Care Ultrasounds: Normal mid trimester US Obstetrical Complications: Other (Pregestational DM) Past Family/Social History * Past Medical, Surgical, Family and Obstetric Histories reviewed from chart. OB Admission Exam Physical Exam Abdomen: WNL Extremities: Normal Cervical Dilatation: 3cm Effacement: 50% Station: -1 Membranes: Intact Heart Rate: 140's Decelerations: No Decelerations Varibility: Moderate Contractions on Admission: >10 Minutes Apart Last 72 hourBlood Glucose Bedside Glucose - 72 Hours Test 09/27/18 08:10 09/27/18 11:16 09/27/18 15:37 09/27/18 17:59 Bedside 121 129 154 92 Glucose mg/dL (70-220) mg/dL (70-220) mg/dL (70-220) mg/dL (70-220) Test 09/27/18 19:59 09/27/18 21:41 09/28/18 08:55 Bedside 119 83 89 Glucose mg/dL (70-220) mg/dL (70-220) mg/dL (70-220) Last 72 hours Lab Results CBC & BMP 09/26/18 23:43 09/26/18 23:45 OB Assessment/Plan Reason for admission: observation Other Assessment: PMH DM PSH denies Plan: Expectant Management OLIVER MAN M.D. Sep 28, 2018 11:59
--- NOTE | 2018-09-28 12:04 | QN ---
Documentation Comment 09/27/2018 Late Entry Note HD#1 35+wks GA with Pregestational DM Slightly thickened endometrium. Otherwise unremarkable.NL NST reasuring [place] Irrregular CTX Pelvic /-3 --->Observation --->IV hydration OLIVER MAN M.D. Sep 28, 2018 12:04
--- NOTE | 2018-09-28 12:06 | QN ---
Documentation Comment 09/28 35+wks GA No cervical change booth attendant 3 days NST reassuring [place] occasional CTXs --->patient is discharged with precautions,IF BPP 11/01 ---Questions answered --F/u in 3-4 days OLIVER MAN M.D. Sep 28, 2018 12:06
--- NOTE | 2018-09-28 12:08 | DS ---
Date/Time of Note Date/Time of Note DATE: 09/28/18 TIME: 12:07 Discharge Summary Admission/Discharge Info Admit Date/Time Sep 26, 2018 at 22:00 Discharge Date/Time 09/28/2018 Discharge Diagnosis labor Patient Condition: Good Hospital Course uneventful Home Meds Active Scripts Cephalexin* (Keflex*) 500 Mg Capsule, 500 MG PO QID for 7 Days, CAP Prov:JUMANA CUNHA PA-C 04/06/18 Metoclopramide* (Reglan*) 10 Mg Tablet, 10 MG PO Q6 PRN for NAUSEA AND/OR VOMITING, #10 TAB Prov:JUMANA CUNHA PA-C 04/06/18 Acetaminophen* (Tylophen*) 500 Mg Capsule, 1 CAP PO Q6H PRN for PAIN AND OR ELEVATED TEMP, #20 CAP Prov:JUMANA CUNHA PA-C 04/06/18 Doxylamine/Pyridoxine Hcl (RUSTAM ARENAS 10-10 MG TABLET) 1 Each Tablet., 1 TAB PO Q6H PRN for NAUSEA, #30 TAB Prov:SERGIO TALAVERA DO 03/29/18 Reported Medications Pnv Cmb#21/Iron/Folic Acid ( Complete Caplet) 1 Each Tablet, 1 EACH PO DAILY, TAB 11/17/17 Primary Care Provider Care Physician No Primary Pending Labs Laboratory Tests Test 09/27/18 15:37 09/27/18 17:59 09/27/18 19:59 09/27/18 21:41 Bedside 154 92 119 83 Glucose mg/dL (70-220) mg/dL (70-220) mg/dL (70-220) mg/dL (70-220) Test 09/28/18 08:55 Bedside 89 Glucose mg/dL (70-220) OLIVER MAN M.D. Sep 28, 2018 12:08
== END 2018-09-28 13:24 | disposition home or self-care (01) | DRG 833 ==
LOC: OBT 20:51 → L-D 20:52 → OBT 22:00
PROVIDERS: ADMIT Obstetrics & Gynecology; ATTEND Obstetrics & Gynecology
DX: O60.03 Preterm labor without delivery, third trimester (principal); O24.419 Gestational diabetes mellitus in pregnancy, unspecified control; Z3A.35 35 weeks gestation of pregnancy
CPT/HCPCS: 76815; 76818; 80307; 82947; 82962; 85025; 85610; 85730; 86592; 86900; 86901; 87340; G0463; J0290; J0595; J1815; J7120

== ENCOUNTER 2018-09-28 17:49 | Inpatient (IN) | payer BC ==
[~2018-09-28] VITALS: Ht 149.9 cm; Wt 60.5 kg
[2018-09-28 18:21] VITALS: Ht 149.9 cm; Wt 60.5 kg
[2018-09-28 18:22] VITALS: BP 138/89; PULSE 72; RESP 20
[2018-09-28] MEDS ORDERED: LACTATED RINGER'S 1,000 ML IV SCH (18:33)
[2018-09-28] MEDS ORDERED: OXYTOCIN 30 UNITS/LR 500 ML IV SCH ×3 (19:00→21:40)
[2018-09-28] MEDS ORDERED: MISOPROSTOL 200 MCG TAB PR PRN ×2 (19:00→22:00)
[2018-09-28] MEDS ORDERED: AMPICILLIN 2 GM/NS (PMX) 100 ML IV ONE (19:00)
[2018-09-28] MEDS ORDERED: METHYLERGONOVINE 0.2 MG INJ IM PRN ×2 (19:00→22:00)
[2018-09-28] MEDS ORDERED: IBUPROFEN 600 MG TAB PO PRN (19:00)
[2018-09-28] MEDS ORDERED: BUTORPHANOL 2 MG INJ IV PRN (19:00)
[2018-09-28] MEDS ORDERED: CARBOPROST 250 MCG INJ IM PRN ×2 (19:00→22:00)
[2018-09-28] MEDS ORDERED: OXYTOCIN 30 UNITS/LR 500 ML IV PRN ×2 (19:00→22:00)
[2018-09-28] MEDS ORDERED: LIDOCAINE 1% (MPF) 30 ML INJ INJ PRN (19:00)
--- NOTE | 2018-09-28 19:06 | PREAC ---
Date/Time of Note Date/Time of Note DATE: 09/28/18 TIME: 19:05 Anesthesia Eval and Record Evaluation Time Pre-Procedure Interview DATE: 09/28/18 TIME: 19:05 Age 37 Sex female NPO: 8 hrs Preoperative diagnosis in labor Planned procedure Labor epidural Past Medical History Past Medical History: None Surgery & Anesthesia Issues No known issue Meds Anticoagulation: No Beta Belkys within 24 hr: No Reason Beta Belkys not given: Pt. not on B-Belkys Discontinued Reported Medications Pnv Cmb#21/Iron/Folic Acid ( Complete Caplet) 1 Each Tablet, 1 EACH PO DAILY, TAB 11/17/17 Discontinued Scripts Cephalexin* (Keflex*) 500 Mg Capsule, 500 MG PO QID for 7 Days, CAP Prov:JUMANA CUNHA PA-C 04/06/18 Metoclopramide* (Reglan*) 10 Mg Tablet, 10 MG PO Q6 PRN for NAUSEA AND/OR VOMITING, #10 TAB Prov:JUMANA CUNHA PA-C 04/06/18 Acetaminophen* (Tylophen*) 500 Mg Capsule, 1 CAP PO Q6H PRN for PAIN AND OR ELEVATED TEMP, #20 CAP Prov:JUMANA CUNHA PA-C 04/06/18 Doxylamine/Pyridoxine Hcl (RUSTAM ARENAS 10-10 MG TABLET) 1 Each Tablet., 1 TAB PO Q6H PRN for NAUSEA, #30 TAB Prov:SERGIO TALAVERA DO 03/29/18 Current Medications Lactated Ringer's 1,000 ml @ 125 mls/hr Q8H IV ; Start 09/28/18 at 18:33 Ampicillin 100 ml @ 100 mls/hr ONCE ONCE IV ; Start 09/28/18 at 19:00; Stop 09/28/18 at 19:59 Ampicillin 50 ml @ 100 mls/hr Q4H IV ; Start 09/28/18 at 23:00 Butorphanol Tartrate (Stadol) 2 mg Q2H PRN IV .PAIN SCALE 6-10; Start 09/28/18 at 19:00 Lidocaine (Xylocaine 1% (Mpf)) 30 ml ONCE PRN INJ .EPISIOTOMY; Start 09/28/18 at 19:00 Oxytocin/Lactated Ringer's 500 ml @ 500 mls/hr ONCE POST IV ; Start 09/28/18 at 19:00 Oxytocin/Lactated Ringer's 500 ml @ 125 mls/hr POST IV ; Start 09/28/18 at 19:00 Ibuprofen (Motrin) 600 mg ONCE PRN PO .PAIN 1-5; Start 09/28/18 at 19:00 Oxytocin/Lactated Ringer's 500 ml @ 0 mls/hr ONCE PRN IV .VAGINAL BLEEDING; Start 09/28/18 at 19:00 Methylergonovine Maleate (Methergine) 0.2 mg ONCE PRN IM .VAGINAL BLEEDING; Start 09/28/18 at 19:00 Carboprost Tromethamine (Hemabate) 250 mcg ONCE PRN IM .VAGINAL BLEEDING; Start 09/28/18 at 19:00 Misoprostol (Cytotec) 1,[address] .VAGINAL BLEEDING; Start 09/28/18 at 19:00 Meds reviewed: Yes Allergies Coded Allergies: No Known Drug Allergy (Verified Allergy, Unknown, 03/28/18) Allergies Reviewed: Yes Labs/Studies Labs Reviewed: Reviewed by anesthesiologist test: Positive Pre-procedure Exam Last vitals Vital Signs Date Temp Pulse Resp B/P (MAP) Pulse Ox O2 O2 Flow FiO2 Time Delivery Rate 09/28/18 98.0 72 20 138/89 Room Air 18:22 (105) Airway: Adequate mouth opening Mallampati: Mallampati II Teeth: Normal Lung: Normal Heart: Normal ASA Physical Status ASA physical status: 2 Emergency: None Planned Anesthetic Neuraxial: Epidural Planned Pain Management Parenteral pain med Pre-operative Attestations Prior to commencing anesthesia and surgery, the patient was re-evaluated, there was verification of: *The patient's identity *The results of appropriate recent lab work and preoperative vital signs *The above evaluation not changing prior to induction *Anesthetic plan, risk benefits, alternative and complications discussed with patient/family; questions answered; patient/family understands, accepts and wishes to proceed. GET KIRAN MD Sep 28, 2018 19:06
[2018-09-28] MEDS ORDERED: FENTAnyl 2MCG/ML-ROPIV 0.2% 100 ML ONE (19:07)
--- NOTE | 2018-09-28 19:44 | HP ---
Date/Time of Note Date/Time of Note DATE: 09/28/18 TIME: 19:42 OB - History Hx of Present Free Text/Dictation 35+ : 4 Para: 3 Care: Good Care Ultrasounds: Normal mid trimester US Obstetrical Complications: None Medical Complications: None Past Family/Social History * Past Medical, Surgical, Family and Obstetric Histories reviewed from chart. OB Admission Exam Vital Signs Vital Signs Vital Signs Date Temp Pulse Resp B/P (MAP) Pulse Ox O2 O2 Flow FiO2 Time Delivery Rate 09/28/18 98.0 72 20 138/89 Room Air 18:22 (105) Physical Exam Abdomen: WNL Cervical Dilatation: 6cm Effacement: 75% Station: -1 Membranes: Intact Heart Rate: 140's Accelerations: Accelerations Present Decelerations: No Decelerations Varibility: Moderate Contractions on Admission: < 5 Minutes Apart Last 72 hours Lab Results CBC & BMP 09/28/18 18:45 OB Assessment/Plan Reason for admission: observation Other Assessment: PMH Pregestational DM PSH denies Plan: Expectant Management OLIVER MAN M.D. Sep 28, 2018 19:44
--- NOTE | 2018-09-28 19:47 | LDN ---
Date/Time of Note Date/Time of Note DATE: 09/28/18 TIME: 19:45 Delivery Summary Weeks of Gestation 35+ Placenta Delivered: Spontaneously Meconium: none Episiotomy: No Estimated blood loss: 200 Sponge & Needle done & correct: Yes All needle counts correct: Yes Any foreign bodies felt in the: No Infant Delivery Information Apgars 1 Minute: 9 5 Minute: 9 Suctioning Nose & mouth suctioned at rekha: Yes Delee suction performed: Yes Umbilical Cord Umbilical cord with: 3 Vessels Cord presentations: no nuchal cord Cord Blood was obtained: Yes Mother & Baby Disposition Disposition Mom & Baby to Maternity; Good: Yes Baby to NICU: No OLIVER MAN M.D. Sep 28, 2018 19:46
[2018-09-28] MEDS ORDERED: FENTAnyl 2MCG/ML-ROPIV 0.2% 100 ML BAG EPI SCH (20:30)
[2018-09-28] MEDS ORDERED: EPHEDrine 25 MG/5 ML SYG IV PRN (20:30)
[2018-09-28] MEDS ORDERED: ONDANSETRON 4 MG INJ IV PRN (20:30)
[2018-09-28] MEDS ORDERED: NALOXONE (0.4 MG/ML) INJ IV PRN (20:30)
[2018-09-28] MEDS ORDERED: DIPHENHYDRAMINE 50 MG INJ IV PRN (20:30)
[2018-09-28 21:45] VITALS: BP 141/72; PULSE 60; RESP 19
[2018-09-28] MEDS ORDERED: NACL 0.9% 3 ML SYG IV SCH (22:00)
[2018-09-28] MEDS ORDERED: OXYCODONE/ACETAMINOPHEN (5/325) TAB PO PRN (22:30)
[2018-09-28 23:00] VITALS: BP 130/80; PULSE 72; RESP 18
[2018-09-28] MEDS ORDERED: AMPICILLIN 1 GM/NS (PMX) 50 ML IV SCH (23:00)
[2018-09-28] MEDS ORDERED: BUPIVACAINE 0.25% (MPF) 30 ML INJ INJ ONE (23:30)
[2018-09-28] MEDS: IBUPROFEN 600 MG TAB PO PRN (23:38)
[2018-09-29] MEDS: IBUPROFEN 600 MG TAB PO PRN ×3 (05:45→17:33)
[2018-09-29 05:51] VITALS: BP 123/78; PULSE 67; RESP 18
[2018-09-29] MEDS: ACCU-CHEK XX SCH ×4 (07:30→13:50)
[2018-09-29 08:00] VITALS: BP 125/75; PULSE 70; RESP 18
--- NOTE | 2018-09-29 08:38 | PAC ---
Date/Time of Note Date/Time of Note DATE: 09/29/18 TIME: 08:37 Post-Anesthesia Notes Post-Anesthesia Note Last documented vital signs Vital Signs Date Temp Pulse Resp B/P (MAP) Pulse Ox O2 O2 Flow FiO2 Time Delivery Rate 09/29/18 98.2 67 18 123/78 Room Air 05:51 (93) Activity: WNL Respiratory function: WNL Cardiovascular function: WNL Mental status: Baseline Pain reasonably controlled: Yes Hydration appropriate: Yes Nausea/Vomiting absent: Yes GET KIRAN MD Sep 29, 2018 08:37
[2018-09-29 11:57] VITALS: BP 120/62; PULSE 56; RESP 18
[2018-09-29 16:09] VITALS: BP 120/80; PULSE 67; RESP 18
--- NOTE | 2018-09-29 17:57 | QN ---
Documentation Comment Consultation was requested for mild hyperglycemia, patient has known gestational diabetes and is now status post postop day 1 with a sugar of 140 after having quincy crackers and then 121. Sugars are not elevated enough to warrant further inpatient stay or inpatient treatment for diabetes and patient can follow with PCP for further diabetic management. YI COHEN Sep 29, 2018 17:56
--- NOTE | 2018-09-29 22:59 | DS ---
Date/Time of Note Date/Time of Note DATE: 09/29/18 TIME: 22:58 Discharge Summary Admission/Discharge Info Admit Date/Time Sep 28, 2018 at 18:15 Discharge Date/Time Sep 29, 2018 at 19:01 Discharge Diagnosis postpartumum Patient Condition: Good Hospital Course uneventful Home Meds Discontinued Reported Medications Pnv Cmb#21/Iron/Folic Acid ( Complete Caplet) 1 Each Tablet, 1 EACH PO DAILY, TAB 11/17/17 Discontinued Scripts Cephalexin* (Keflex*) 500 Mg Capsule, 500 MG PO QID for 7 Days, CAP Prov:JUMANA CUNHA PA-C 04/06/18 Metoclopramide* (Reglan*) 10 Mg Tablet, 10 MG PO Q6 PRN for NAUSEA AND/OR VOMITING, #10 TAB Prov:JUMANA CUNHA PA-C 04/06/18 Acetaminophen* (Tylophen*) 500 Mg Capsule, 1 CAP PO Q6H PRN for PAIN AND OR ELEVATED TEMP, #20 CAP Prov:JUMANA CUNHA PA-C 04/06/18 Doxylamine/Pyridoxine Hcl (RUSTAM ARENAS 10-10 MG TABLET) 1 Each Tablet.dr, 1 TAB PO Q6H PRN for NAUSEA, #30 TAB Prov:SERGIO TALAVERA DO 03/29/18 Primary Care Provider Care Physician No Primary Pending Labs Laboratory Tests Test 09/29/18 07:21 09/29/18 08:27 09/29/18 11:29 09/29/18 15:21 White Blood 11.1 Count 10^3/ul (4.8-10 .8) Red Blood 3.57 Count 10^6/ul (4.20-5 .40) Hemoglobin 11.6 g/dl (12.0-16.0 ) Hematocrit 33.2 % (37.0-47.0) Mean 93.0 Corpuscular fl (82.0-101.0) Volume Mean 32.5 Corpuscular pg (29.0-33.0) Hemoglobin Mean 34.9 Corpuscular g/dl (32.0-37.0 Hemoglobin Conc ) ent Red Cell 13.5 Distribution % (11.5-14.5) Width Platelet Count 162 10^3/UL (140-41 5) Mean Platelet 11.8 Volume fl (7.4-10.4) Immature 0.400 Granulocytes % % (0.001-0.429) Neutrophils % 71.7 % (39.0-77.0) Lymphocytes % 19.0 % (15.0-51.0) Monocytes % 8.1 % (0.0-11.0) Eosinophils % 0.5 % (0.0-7.0) Basophils % 0.3 % (0.0-2.0) Nucleated Red 0.0 Blood Cells % /100WBC (0.0-0. 0) Immature 0.040 Granulocytes # 10^3/ul (0.0-0. 031) Neutrophils # 7.9 10^3/ul (1.6-7. 5) Lymphocytes # 2.1 10^3/ul (0.8-2. 9) Monocytes # 0.9 10^3/ul (0.3-0. 9) Eosinophils # 0.1 10^3/ul (0.0-0. 5) Basophils # 0.0 10^3/ul (0.0-0. 1) Nucleated Red 0.0 Blood Cells # 10^3/ul (0.0-0. 0) Bedside 119 140 121 Glucose mg/dL (70-220) mg/dL (70-220) mg/dL (70-220) OLIVER MAN M.D. Sep 29, 2018 22:59
--- NOTE | 2018-09-29 23:02 | QN ---
Documentation Comment PPD# 1 is stable afebrile tolertes dier No VB +BM +voids VS stable Gen NAD Abd soft NT ND Genitalia No blood at perineum --->Discharge home with precautions --->F/u with her PCP for Her diabetes -->questions answered ---precautions discussed OLIVER MAN M.D. Sep 29, 2018 23:02
--- NOTE | 2018-09-30 19:02 | DELSUM ---
Delivery Summary A-C Datetime Report Generated by CPN: 09/30/2018 19:02 DELIVERY PERSONNEL Shearer Helper: Baird, Rosalina MATERNAL INFORMATION Delivery Anesthesia: Epidural Medications in Delivery: 30 UNIT PITOCIN Delivery QBL (ml): 200 Placenta Cultured: No Maternal Complications: Other Other Maternal Complications: GDM LABOR SUMMARY EDC: 11/02/2018 00:00 No. Babies in Womb: 1 Attempted: No Labor Anesthesia: Epidural LABOR INFORMATION Reason for Induction: Not Applicable Onset of Labor: 09/28/2018 18:00 Complete Dilatation: 09/28/2018 19:30 Group B Beta Strep: Not Done Antibiotics # of Doses: 10 Antibiotics Time of Last Dose: 09/28/2018 19:24 Steroids Given: Full Course Reason Steroids Not Administered: Indication MEMBRANES Membranes Rupture Method: Artificial Rupture of Membranes: 09/28/2018 19:27 Length of Rupture (hr): 0.10 Amniotic Fluid Color: Clear Amniotic Fluid Amount: Large Amniotic Fluid Odor: None STAGES OF LABOR Stage 1 hr: 1 Stage 1 min: 30 Stage 2 hr: 0 Stage 2 min: 3 Stage 3 hr: 0 Stage 3 min: 2 Total Time in Labor hr: 1 Total Time in Labor min: 35 VAGINAL DELIVERY Episiotomy: None Laceration Extension: N/A Laceration Type: None Initial Vag Sponge Count: 10 Final Vag Sponge Count: 10 Initial Vag Sharps Count: 1 Final Vag Sharps Count: 1 Sponge Count Correct: Yes; Vaginal Sweep Performed Sharps Count Correct: Yes BABY A INFORMATION Delivery Date/Time: 09/28/2018 19:33 Method of Delivery: Vaginal Born in Route : No : N/A Forceps: N/A Vacuum Extraction: N/A Shoulder Dystocia : N/A SHOULDER DYSTOCIA BABY A Delivery Date/Time: 09/28/2018 19:33 PRESENTATION/POSITION BABY A Presentation: Cephalic Cephalic Presentation: Vertex Vertex Position: Left Occipital Anterior Breech Presentation: N/A PLACENTA INFORMATION BABY A Placenta Delivery Time : 09/28/2018 19:35 Placenta Method of Delivery: Spontaneous Placenta Status: Delivered SCORES BABY A Heart Rate 1 min: >100 bpm Resp Effort 1 min: Good Cry Reflex Irritability 1 min: Cough/Sneeze/Pulls Away Muscle Tone 1 min: Some Flexion of Extrem Color 1 min: Body Sumner, Extremit Blue Resuscitation Effort 1 min: Tactile Stimulation; PPV/NCPAP SCORE 1 MIN: 8 Heart Rate 5 min: >100 bpm Resp Effort 5 min: Good Cry Reflex Irritability 5 min: Cough/Sneeze/Pulls Away Muscle Tone 5 min: Some Flexion of Extrem Color 5 min: Body Sumner, Extremit Blue Resuscitation Effort 5 min: Tactile Stimulation; PPV/NCPAP SCORE 5 MIN: 8 INFORMATION BABY A Gestational Age at Delivery: 35.0 Gestational Status: Late - 34- 36.6 Weeks Outcome : Liveborn, with signs of life Infant Condition : Stable Infant Sex: Female IDENTIFICATION/MEDS BABY A ID Band Number: [id number] ID Band Location: Right Leg; Left Arm Sensor Applied: No Sensor Number: [id number] Vitamin K Given : Not Given Erythromycin Given: Not Given WEIGHT/LENGTH BABY A Infant Birthweight (gm): 2840 Infant Weight (lb): 6 Weight (oz): 4 Length (in): 18.00 Infant Length (cm): 45.72 CORD INFORMATION BABY A No. Cord Vessels: 3 Nuchal Cord : N/A Cord Blood Taken: Yes Suction: Mouth; Nose; Pharynx ASSESSMENT BABY A Complications: None Physical Findings at Delivery: Within Normal Limits Infant Respirations: Grunting Delinquent Tax Collection Assistant/ALS Called : No Infant Care By: ROSEANNE MELENDEZ
== END 2018-09-29 19:01 | disposition home or self-care (01) | DRG 807 ==
LOC: L-D 17:49 → OBT 17:49 → L-D 18:15 → PP1 21:29
PROVIDERS: ADMIT Obstetrics & Gynecology; ATTEND Obstetrics & Gynecology
PROC: 10E0XZZ Delivery of Products of Conception, External Approach (ICD-10-PCS; principal; 2018-09-28)
DX: O24.429 Gestational diabetes mellitus in childbirth, unspecified control (principal); Z37.0 Single live birth; Z3A.36 36 weeks gestation of pregnancy
CPT/HCPCS: 62322; 80307; 82962; 85025; 85610; 85730; 86592; 86850; 86900; 86901; 87340; 99464; G0463; J0290; J2590; J3010; J7120